=== PATIENT | female | born 1990 | race Caucasian/White ===

== ENCOUNTER 2016-08-26 17:46 | Emergency (ER) | payer BC, MEDICAID ==
[~2016-08-26 17:46] MED LIST: AZIT200S PO; TYLCOD5S PO
[2016-08-26] MEDS ORDERED: ACETAMINOPHEN 500 MG CPLT PO ONE (18:45)
--- NOTE | 2016-08-26 18:45 | PD ---
HPI Chief Complaint the light hurts my eyes, headaches Date Seen: Aug 26, 2016 Time Seen: 18:30 Travel History International Travel<30 Days: No Contact w/Intl Traveler<30Days: No Known Affected Area: No History of Present Illness HPI 25-year-old 002 at 21 weeks and 4 days of gestation, Di/Di twin , SKIP is 01/02/17, patient presents to OB ED with complaints of headaches, patient stated that she cannot tolerate lights as it hurts her eyes/photophobia , patient denies cramping, contractions, leakage of fluids, vaginal bleeding and decreased movements. She reports presence of movements 2. care is with Dr. Devlin, course significant for history of migraines. Bedside ultrasound shows twin A with heart rates in the 150s, twin B heart rate in the 140s. Para: 2 : 3 Miscarriage: 0 : 0 History Past Medical History Narrative Medical Migraines headaches Obstetric History Obstetric History Spontaneous vaginal delivery 2 Past Surgical History Narrative Surgical Status post left ankle surgery Family History Narrative Family History Unremarkable Family History: Negative Social History Alcohol Use: No Tobacco Use: No Substance Abuse: No Allergies-Medications (Allergen,Severity, Reaction): Coded Allergies: Penicillin (Verified Allergy, Severe, 05/22/15) Sulfa (Verified Allergy, Severe, 05/22/15) Home Meds Active Scripts Acetaminophen/Codein 120 Mg/12 Mg Elix10 Ml PO Q6H #120 ML Prov:Ana Cristina Mack MD 05/22/15 Azithromycin (Zithromax 200 Mg/5 Ml)200 Mg/5 Ml Susp PO DIRECTED 5 Days ___ ML (___ MG) PO ON DAY 1, THEN ___ ML (___ MG) PO ON DAYS 2 TO 5 Prov:Ana Cristina Mack MD 05/22/15 Review of Systems Except as stated in HPI: all other systems reviewed are Neg Eyes: Photophobia HENT: Headaches Physical Exam Narrative GENERAL: Well-nourished, well-developed patient. SKIN: Warm and dry. HEAD: Normocephalic and atraumatic. EYES: No scleral icterus. No injection or drainage. ENT: No nasal drainage noted. Mucous membranes pink. Airway patent. NECK: Supple, trachea midline. No JVD. CARDIOVASCULAR: Regular rate and rhythm without murmurs, gallops, or rubs. RESPIRATORY: Breath sounds equal bilaterally. No accessory muscle use. BREASTS: Bilateral exam showed no masses , no retractions, no nipple discharge. ABDOMEN/GI: Abdomen soft, non-tender, gravid, bowel sounds present, no rebound, no guarding Gravid to 22 weeks size Fundal Height: 22 cm GENITOURINARY: External Genitalia: intact and normal in appearance BUS glands: Normal Cervix: Closed, long, posterior Dilatation: Closed Effacement: 30% Station: -3 Presentation: Cephalic 2 Membranes: Intact Uterine Contractions: None FHT's: Category: one Baseline: Twin A 150s, twin B1 40s Reactive: Reassuring Variability: Moderate Decels: None EXTREMITIES: No cyanosis or edema. BACK: Nontender without obvious deformity. No CVA tenderness. NEUROLOGICAL: Awake and alert. Motor and sensory grossly within normal limits. Five out of 5 muscle strength in all muscle groups. Normal speech. Data Data Vital Signs Reviewed: Yes Orders Vital Signs (Adult) .ON ADMISSION (08/26/16 18:32) ^ Labor Status (08/26/16 18:32) Urinalysis - C+S If Indicated (08/26/16 18:32) ^ Non Stress Test (08/26/16 18:32) ^ Hydration (08/26/16 18:32) Acetaminophen (Tylenol) (08/26/16 18:45) MDM Diagnosis Diagnosis: Primary Impression: 22 weeks gestation of Additional Impressions: Twin in second trimester Qualified Code: O30.042 - Dichorionic diamniotic twin in second trimester Migraine headache Disposition: DISCHARGE HOME Condition: Stable Additional Instructions: Patient is given Tylenol 1000 mg by mouth times one dose, she is instructed to return to labor and delivery if increased symptoms, cramping, contractions, leakage of fluids, vaginal bleeding, or decreased movement. Drink plenty of fluids. Monitor kick counts. Keep office appointment as scheduled. Take medications as prescribed. Hong Alford MD Aug 26, 2016 18:45
[2016-08-26 18:51] VITALS: RESP 18
[2016-08-26 21:07] LABS: BLOOD, URINE NEG (NEG); COMMENT (UR) CULT NOT INDICATED; CULTURE IF INDICATED CULT NOT INDICATED; GLUCOSE,URINE NEG (NEG); KETONE, URINE NEG (NEG); MUCUS URINE FEW /lpf (OCC); NITRITE,URINE NEG (NEG); PH, URINE 6.5 (5.0-8.5); SQUAMOUS EPITHELIAL CELL URINE 2 /hpf (0-5); URINE COLOR YELLOW (YELLW/STRAW)
== END 2016-08-26 18:58 | disposition home or self-care (01) ==
LOC: HOBED 17:46
DX: O26.892 Other specified pregnancy related conditions, second trimester (principal); O30.042 Twin pregnancy, dichorionic/diamniotic, second trimester; G43.909 Migraine, unspecified, not intractable, without status migrainosus; Z3A.22 22 weeks gestation of pregnancy
CPT/HCPCS: 76815; 81001

== ENCOUNTER 2016-10-19 14:06 | Emergency (ER) | payer BC ==
--- NOTE | 2016-10-19 15:17 | PD ---
HPI Chief Complaint Contractions Date Seen: Oct 19, 2016 Time Seen: 15:12 Travel History International Travel<30 Days: No Contact w/Intl Traveler<30Days: No Known Affected Area: No History of Present Illness HPI 25-year-old at 29 weeks gestation with a twin surrogate . Patient complains of slight tightening in the left upper quadrant the last approximate 10-15 seconds and occurs every 15-20 minutes. No complications Para: 2 : 3 History Past Medical History Medical History: Denies Significant Hx Obstetric History Obstetric History Spontaneous vaginal delivery 2 Past Surgical History Surgical History: No Previous Surgery Family History Family History: Negative Social History Alcohol Use: No Tobacco Use: No Substance Abuse: No Allergies-Medications (Allergen,Severity, Reaction): Coded Allergies: Penicillin (Verified Allergy, Severe, 05/22/15) Sulfa (Verified Allergy, Severe, 05/22/15) Home Meds Active Scripts Acetaminophen/Codeine (Tylenol / Codeine Elix Per 5 Ml)120 Mg/12 Mg Elix10 Ml PO Q6H #120 ML Prov:Ana Cristina Mack MD 05/22/15 Azithromycin (Zithromax 200 Mg/5 Ml)200 Mg/5 Ml Susp PO DIRECTED 5 Days ___ ML (___ MG) PO ON DAY 1, THEN ___ ML (___ MG) PO ON DAYS 2 TO 5 Prov:Ana Cristina Mack MD 05/22/15 Review of Systems Except as stated in HPI: all other systems reviewed are Neg Physical Exam Narrative GENERAL: Well-nourished, well-developed patient. SKIN: Warm and dry. HEAD: Normocephalic and atraumatic. EYES: No scleral icterus. No injection or drainage. ENT: No nasal drainage noted. Mucous membranes pink. Airway patent. NECK: Supple, trachea midline. No JVD. CARDIOVASCULAR: Regular rate and rhythm without murmurs, gallops, or rubs. RESPIRATORY: Breath sounds equal bilaterally. No accessory muscle use. BREASTS: Bilateral exam showed no masses , no retractions, no nipple discharge. ABDOMEN/GI: Abdomen soft, non-tender, bowel sounds present, no rebound, no guarding Gravid to [38-] weeks size Fundal Height: [-] GENITOURINARY: External Genitalia: intact and normal in appearance BUS glands: [-] Normal Cervix: [Posterior-] Dilatation: [Closed-] Effacement: [-50] Station: [-3-] Presentation: - Membranes: Intact Uterine Contractions: None seen FHT's: Category: [-1 on both babies] Baseline: 145 and 150 Reactive: Moderate Variability: Moderate Decels: Absent EXTREMITIES: No cyanosis or edema. BACK: Nontender without obvious deformity. No CVA tenderness. NEUROLOGICAL: Awake and alert. Motor and sensory grossly within normal limits. Five out of 5 muscle strength in all muscle groups. Normal speech. Data Data Vital Signs Reviewed: Yes MDM Plan 29 week twin gestation no contractions seen cervix is closed. Patient reassured , decrease her activities with adequate oral hydration Diagnosis Diagnosis: Primary Impression: 29 weeks gestation of Additional Impressions: Twin False labor before 37 completed weeks of gestation, third trimester Disposition: 01 DISCHARGE HOME Suzie Wilson MD Oct 19, 2016 15:17
== END 2016-10-19 16:20 | disposition home or self-care (01) ==
LOC: HOBED 14:06
DX: O47.1 False labor at or after 37 completed weeks of gestation (principal); R10.12 Left upper quadrant pain; Z3A.37 37 weeks gestation of pregnancy
CPT/HCPCS: 76815

== ENCOUNTER 2016-11-16 22:33 | Emergency (ER) | payer BC ==
--- NOTE | 2016-11-16 23:36 | PD ---
HPI Chief Complaint Lower abdominal pain Date Seen: Nov 16, 2016 Time Seen: 23:33 Travel History International Travel<30 Days: No Contact w/Intl Traveler<30Days: No Known Affected Area: No History of Present Illness HPI 26-year-old who is at 33 weeks and 2 days comes in complaining of lower abdominal pain for the past 48 hours. She states it has not changed, has not worsened or improved during that time. She called her OB this evening who instructed her to come in today for a cervical exam. She denies vaginal bleeding, denies contractions, denies discharge rupture membranes. Patient has had excellent movement without any abnormalities of this . This is a surrogate twin . Para: 2 : 3 History Past Medical History Medical History: Denies Significant Hx Obstetric History Obstetric History Spontaneous vaginal delivery 2 Past Surgical History Surgical History: No Previous Surgery Family History Family History: Negative Social History Alcohol Use: No Tobacco Use: No Substance Abuse: No Allergies-Medications (Allergen,Severity, Reaction): Coded Allergies: Penicillin (Verified Allergy, Severe, 10/19/16) Sulfa (Verified Allergy, Severe, 10/19/16) Home Meds Active Scripts Acetaminophen/Codeine (Tylenol / Codeine Elix Per 5 Ml)120 Mg/12 Mg Elix10 Ml PO Q6H #120 ML Prov:Ana Cristina Mack MD 05/22/15 Azithromycin (Zithromax 200 Mg/5 Ml)200 Mg/5 Ml Susp PO DIRECTED 5 Days ___ ML (___ MG) PO ON DAY 1, THEN ___ ML (___ MG) PO ON DAYS 2 TO 5 Prov:Ana Cristina Mack MD 05/22/15 Review of Systems Except as stated in HPI: all other systems reviewed are Neg Physical Exam Narrative GENERAL: Well-nourished, well-developed patient. SKIN: Warm and dry. HEAD: Normocephalic and atraumatic. EYES: No scleral icterus. No injection or drainage. ENT: No nasal drainage noted. Mucous membranes pink. Airway patent. NECK: Supple, trachea midline. No JVD. CARDIOVASCULAR: Regular rate and rhythm without murmurs, gallops, or rubs. RESPIRATORY: Breath sounds equal bilaterally. No accessory muscle use. BREASTS: Bilateral exam showed no masses , no retractions, no nipple discharge. ABDOMEN/GI: Abdomen soft, non-tender, bowel sounds present, no rebound, no guarding Gravid to [40-] weeks size Fundal Height: [-] GENITOURINARY: External Genitalia: intact and normal in appearance BUS glands: [Normal-] Cervix: [-Posterior] Dilatation: [-Closed] Effacement: [Long-] Station: [-3-] Presentation: [-Vertex with twin A] Membranes: [intact or ruptured] Uterine Contractions: [-Absent] FHT's: Category: [-1] Baseline: 140 and 140 both twins have moderate variability, good reactivity, accelerations are present, no heart rate decelerations are noted Reactive: [-] Variability: [-] Decels: [-] EXTREMITIES: No cyanosis or edema. BACK: Nontender without obvious deformity. No CVA tenderness. NEUROLOGICAL: Awake and alert. Motor and sensory grossly within normal limits. Five out of 5 muscle strength in all muscle groups. Normal speech. MDM Medical Record Reviewed: Yes Plan 26 yo who is at 33 weeks and 2 days with twin gestation. Some discomforts of are noted with round ligament pain and some mild low back pain Cervix is closed and patient has no contractions Patient has appointment next Saturday for follow-up OB Diagnosis Diagnosis: Primary Impression: 33 weeks gestation of Additional Impressions: Twin Abdominal pain affecting Disposition: 01 DISCHARGE HOME Suzie Wilson MD Nov 16, 2016 23:35
== END 2016-11-16 23:50 | disposition home or self-care (01) ==
LOC: HOBED 22:33
DX: O26.893 Other specified pregnancy related conditions, third trimester (principal); R10.30 Lower abdominal pain, unspecified; O30.003 Twin pregnancy, unspecified number of placenta and unspecified number of amniotic sacs, third trimester; Z3A.33 33 weeks gestation of pregnancy
CPT/HCPCS: 59025

== ENCOUNTER 2016-12-06 09:16 | Emergency (ER) | payer BC ==
--- NOTE | 2016-12-06 10:13 | PD ---
HPI Chief Complaint contractions Date Seen: December 06, 2016 Travel History International Travel<30 Days: No Contact w/Intl Traveler<30Days: No Known Affected Area: No History of Present Illness HPI Ms. Cooln is a 26-year-old [address] Devlin at 36 1/7 weeks (2016) with current twinge gestation who presents with complaint of contractions. Patient states that her contractions began approximately 7 AM, and her increased in severity; patient reports back and abdominal pain occurring approximately every 67 minutes at a time. Patient denies vaginal bleeding or loss of vaginal fluid. Patient reports increased she'll discharge which she describes as whitish in color. Patient reports normal movement. Patient does not report other current problems such as shortness of breath, chest pain, or dysuria. Patient reports benign course with exception of anemia. Per records reviewed by nursing staff, patient's last hemoglobin was 8.4. Patient on current ferrous sulfate supplementation. GBS - Para: 2 : 3 History Past Medical History Narrative Medical Anemia (last known hemoglobin of 8.4)on ferrous sulfate supplementation Abnormal Pap smears- unspecified On 81mg aspirin Obstetric History Obstetric History 002 Two prior full-term vaginal deliveries Past Surgical History Narrative Surgical Unspecified ankle surgery approximately 9 years ago Family History Family History: Negative Social History Narrative Social History Patient reports that she is caring twin gestation as a surrogate Alcohol Use: No Tobacco Use: No Substance Abuse: No Allergies-Medications (Allergen,Severity, Reaction): Coded Allergies: Penicillin (Verified Allergy, Severe, 10/19/16) Sulfa (Verified Allergy, Severe, 10/19/16) Home Meds Active Scripts Acetaminophen/Codeine (Tylenol / Codeine Elix Per 5 Ml)120 Mg/12 Mg Elix10 Ml PO Q6H #120 ML Prov:Ana Cristina Mack MD 05/22/15 Azithromycin (Zithromax 200 Mg/5 Ml)200 Mg/5 Ml Susp PO DIRECTED 5 Days ___ ML (___ MG) PO ON DAY 1, THEN ___ ML (___ MG) PO ON DAYS 2 TO 5 Prov:Ana Cristina Mack MD 05/22/15 Review of Systems General / Constitutional: No: Fever, Chills HENT: No: Headaches Cardiovascular: No: Chest Pain or Discomfort Respiratory: No: Short of Breath Gastrointestinal: Abdominal Pain (q 67 minutes), No: Nausea, Vomiting Genitourinary: No: Dysuria Physical Exam BP 132/96 HR 87 T 98 R 18 Narrative GENERAL: Well-nourished, well-developed patient. SKIN: Warm and dry. HEAD: Normocephalic and atraumatic. EYES: No scleral icterus. No injection or drainage. ENT: No nasal drainage noted. Mucous membranes pink. Airway patent. NECK: Supple, trachea midline. No JVD. CARDIOVASCULAR: Regular rate and rhythm without murmurs. Normal perfusion RESPIRATORY: CTAB, normal rate ABDOMEN/GI: Abdomen soft, non-tender, bowel sounds present, no rebound, no guarding Gravid EXTREMITIES: No cyanosis or edema. NEUROLOGICAL: Awake and alert. Motor and sensory function grossly within normal limits. GENITOURINARY: Exam performed by nursing staff External Genitalia: intact and normal in appearance Cervix: Dilatation: 2 cm Effacement: 40% effacement Station: -3 Presentation: Presenting twin is breech Membranes: Intact Uterine Contractions: Every 35 minutes FHT's: Red Category: 1 Baseline: 130 Reactive: Y Variability: Moderate Decels: None FHT's: Blue Category: 1 Baseline: 130 Reactive: Y Variability: Mod Decels: None MDM Medical Record Reviewed: Yes Narrative Course / MDM Ms. Colon is a 26-year-old [address] Devlin at 36 1/7 weeks (2016) with current twinge gestation who presents with complaint of contractions. -Contractions q3-5 minutes -Cat 1 rhythm for both twins -Presenting twin breech -GBS negative Plan: -IV LR hydration -Fentanyl PRN pain -Due to high chance of need for CS, will obtain CBC, UA, Type and screen -Will plan for Dr. Devlin to be notified by Ramesh Diaz MD R2 December 06, 2016 10:13
[2016-12-06 10:40] LABS: AUTOMATED NEUTROPHIL # 8.4 TH/MM3 (1.8-7.7); BASOPHIL # 0.1 TH/MM3 (0-0.2); BASOPHIL % 0.5 % (0.0-2.0); EOSINOPHIL # 0.2 TH/MM3 (0-0.4); EOSINOPHIL % 1.5 % (0.0-4.0); HEMATOCRIT 25.2 % (35.0-46.0); LYMPH % 18.8 % (9.0-44.0); LYMPHOCYTE # 2.1 TH/MM3 (1.0-4.8); MEAN CELL VOLUME 61.2 FL (80.0-100.0); MEAN CORPUSCULAR HEMOGLOBIN 18.5 PG (27.0-34.0); MEAN CORPUSCULAR HGB CONC 30.3 % (32.0-36.0); MONO % 5.4 % (0.0-8.0); NEUT % 73.8 % (16.0-70.0); PLATELET COUNT 207 TH/MM3 (150-450); RED BLOOD COUNT 4.12 MIL/MM3 (4.00-5.30); RED CELL DISTRIBUTION WIDTH 18.3 % (11.6-17.2); WHITE BLOOD COUNT 11.3 TH/MM3 (4.0-11.0)
[2016-12-06] MEDS ORDERED: LACTATED RINGER'S 1000 ML INJ 1,000 ML IV SCH (10:43)
[2016-12-06 10:44] LABS: HEMO FLAGS AUTO DIFF
[2016-12-06 10:47] LABS: BACTERIA, URINE RARE /hpf; BLOOD, URINE NEG (NEG); COMMENT (UR) CULT NOT INDICATED; CULTURE IF INDICATED CULT NOT INDICATED; GLUCOSE,URINE NEG (NEG); KETONE, URINE NEG (NEG); MUCUS URINE FEW /lpf (OCC); NITRITE,URINE NEG (NEG); PH, URINE 6.5 (5.0-8.5); SQUAMOUS EPITHELIAL CELL URINE 2 /hpf (0-5); TRANSITIONAL EPI CELLS, URINE <1 /hpf; URINE COLOR YELLOW (YELLW/STRAW)
[2016-12-06 11:27] LABS: BANDS 11 % (0-6); EOSINOPHILS 2 % (0-4); METAMYELOCYTES 1 % (0-1); NEUTROPHIL # MANUAL DIFF 9.8 TH/MM3 (1.8-7.7); PLATELET ESTIMATE SMEAR NORMAL (NORMAL); PLATELET MORPHOLOGY NORMAL (NORMAL); POLYS (SEG NEUTROPHILS) 75 % (16-70); SCAN/DIFF FINAL DIFF MANUAL; WBC DIFF SAMPLE 100
--- NOTE | 2016-12-06 12:35 | HHI.HP ---
HPI Chief Complaint twins with contractions Date Seen: December 06, 2016 Travel History International Travel<30 Days: No Contact w/Intl Traveler<30Days: No Known Affected Area: No History of Present Illness HPI Patient is 26-year-old with twins presents complaining of contractions at 36 weeks, denies bleeding or ruptured membranes. Babies are active. She sees Dr. Dior for care. Para: 2 : 3 History Obstetric History Obstetric History 2 vaginal deliveries Social History Alcohol Use: No Tobacco Use: No Substance Abuse: No Allergies-Medications (Allergen,Severity, Reaction): Coded Allergies: Penicillin (Verified Allergy, Severe, 10/19/16) Sulfa (Verified Allergy, Severe, 10/19/16) Home Meds Active Scripts Acetaminophen/Codeine (Tylenol / Codeine Elix Per 5 Ml)120 Mg/12 Mg Elix10 Ml PO Q6H #120 ML Prov:Ana Cristina Mack MD 05/22/15 Azithromycin (Zithromax 200 Mg/5 Ml)200 Mg/5 Ml Susp PO DIRECTED 5 Days ___ ML (___ MG) PO ON DAY 1, THEN ___ ML (___ MG) PO ON DAYS 2 TO 5 Prov:Ana Cristina Mack MD 05/22/15 Review of Systems General / Constitutional: No: Fever, Weight Gain, Chills, Other Eyes: No: Diploplia, Blurred Vision, Visual changes, Pain, Photophobia HENT: No: Headaches, Vertigo, Lightheadedness Cardiovascular: No: Irregular Rhythm, Chest Pain or Discomfort, Palpitations, Tachycardia, Syncope, Varicosities, Edema, Cyanosis Respiratory: No: Cough, Short of Breath, Other Gastrointestinal: No: Nausea, Vomiting, Diarrhea Genitourinary: No: Decreased Urinary Output, Oliguria Musculoskeletal: No: Limited ROM, Weakness, Cramping, Edema, Pain Skin: No Rash, No Itching, No Dryness, No Lumps, No Change in Pigmentation, No Change in Nails, No Alopecia, No Lesions Neurologic: No: Weakness, Dizziness, Syncope, Focal Abnormalities, Coordination Problem, Headache, Slurred Speech, Seizures Psychiatric: No: Depression, Suicidal Ideations, Homicidal Ideation Endocrine: No: Heat Intolerance, Cold Intolerance, Polydipsia, Polyuria, Other Physical Exam Narrative GENERAL: Well-nourished, well-developed patient. SKIN: Warm and dry. HEAD: Normocephalic and atraumatic. EYES: No scleral icterus. No injection or drainage. ENT: No nasal drainage noted. Mucous membranes pink. Airway patent. NECK: Supple, trachea midline. No JVD. CARDIOVASCULAR: Regular rate and rhythm without murmurs, gallops, or rubs. RESPIRATORY: Breath sounds equal bilaterally. No accessory muscle use. BREASTS: Bilateral exam showed no masses , no retractions, no nipple discharge. ABDOMEN/GI: Abdomen soft, non-tender, bowel sounds present, no rebound, no guarding Gravid to [40-] weeks size Fundal Height: [40-] GENITOURINARY: External Genitalia: intact and normal in appearance BUS glands: [-] Cervix: [-] Dilatation: [2-] Effacement: [40-] Station: [-3] Presentation: [breech / vtx-] Membranes: [intact ] Uterine Contractions: [q 3 min-] FHT's: Category: [1-] Baseline: [134/144-] Reactive: [yes-] Variability: [-mod] Decels: [-none] EXTREMITIES: No cyanosis or edema. BACK: Nontender without obvious deformity. No CVA tenderness. NEUROLOGICAL: Awake and alert. Motor and sensory grossly within normal limits. Five out of 5 muscle strength in all muscle groups. Normal speech. Data Data Orders Vital Signs (Adult) .ON ADMISSION (12/06/16 10:13) Activity Oob Ad Shanice (12/06/16 10:13) Heart (12/06/16 10:13) Lactated Ringer's 1000 Ml Inj (Lr 1000 M (12/06/16 10:43) Type And Screen (12/06/16 10:13) Complete Blood Count With Diff (12/06/16 10:13) Urinalysis - C+S If Indicated (12/06/16 10:13) Labs Laboratory Tests Test 12/06/16 12/06/16 09:24 10:10 Urine Color YELLOW Urine Turbidity CLEAR Urine pH 6.5 Urine Specific [place] 1.014 Urine Protein NEG Urine Glucose (UA) NEG Urine Ketones NEG Urine Occult Blood NEG Urine Nitrite NEG Urine Bilirubin NEG Urine Urobilinogen LESS THAN 2.0 Urine Leukocyte Esterase LARGE Urine RBC 2 Urine WBC 4 Urine Squamous Epithelial 2 Cells Urine Transitional Epithelial <1 Cells Urine Bacteria RARE Urine Mucus FEW Microscopic Urinalysis Comment CULT NOT INDICATED White Blood Count 11.3 Red Blood Count 4.12 Hemoglobin 7.7 Hematocrit 25.2 Mean Corpuscular Volume 61.2 Mean Corpuscular Hemoglobin 18.5 Mean Corpuscular Hemoglobin 30.3 Concent Red Cell Distribution Width 18.3 Platelet Count 207 Mean Platelet Volume 8.8 Neutrophils (%) (Auto) 73.8 Lymphocytes (%) (Auto) 18.8 Monocytes (%) (Auto) 5.4 Eosinophils (%) (Auto) 1.5 Basophils (%) (Auto) 0.5 Neutrophils # (Auto) 8.4 Lymphocytes # (Auto) 2.1 Monocytes # (Auto) 0.6 Eosinophils # (Auto) 0.2 Basophils # (Auto) 0.1 CBC Comment AUTO DIFF Differential Total Cells 100 Counted Neutrophils % (Manual) 75 Band Neutrophils % 11 Lymphocytes % 8 Monocytes % 3 Eosinophils % 2 Neutrophils # (Manual) 9.8 Metamyelocytes 1 Differential Comment FINAL DIFF MANUAL Platelet Estimate NORMAL Platelet Morphology Comment NORMAL Blood Type A POSITIVE Antibody Screen NEGATIVE Assessment/Plan Assessment and Plan This patient is 26-year-old white female 36 weeks with twins briseyda. Baby is notably breech presenting with the second twin vertex. She has regular contractions every 3 minutes. heart tones within normal limits & reactive. No bleeding or ruptured membranes. Patient's is Dr. Dior for care. This is a surrogacy . With the patient briseyda irregularly hydrated adequately still briesyda Dr. Dior is on his way here to reevaluate and possibly deliver the baby's by by . Js Vasquez II, MD December 06, 2016 12:35
--- NOTE | 2016-12-06 13:24 | HHI.PR ---
Subjective Remarks doing well CTX spaced and she feels better Objective Result Diagram: 12/06/16 1010 Assessment and Plan Problem List: (1) Twin Status: Acute Discharge Planning dc home labor precautions Problem Qualifiers (1) Twin : Qualified Code: O30.043 - Dichorionic diamniotic twin in third trimester Arthur Devlin MD December 06, 2016 13:24
== END 2016-12-06 13:34 | disposition home or self-care (01) ==
LOC: HOBED 09:16 → UNDOADMIN 12:47 → H2EB 12:47 → HOBED 13:34
DX: O30.043 Twin pregnancy, dichorionic/diamniotic, third trimester (principal)
CPT/HCPCS: 59025; 81001; 85007; 85027; 86850; 86900; 86901; 96360; 99284; J7120

== ENCOUNTER 2016-12-11 01:48 | Inpatient (IN) | payer BC ==
[2016-12-11] VITALS (7 sets, daily range): BP systolic 116–142; BP diastolic 57–90; PULSE 64–98; RESP 16–18; TEMP 97.5–98.8; O2SAT 99–100
[2016-12-11] MEDS: LACTATED RINGER'S 1000 ML INJ 1,000 ML IV SCH ×3 (02:45→18:00)
--- NOTE | 2016-12-11 02:58 | PD ---
HPI Chief Complaint contractions since 1130p Date Seen: December 11, 2016 Travel History International Travel<30 Days: No Contact w/Intl Traveler<30Days: No Known Affected Area: No History of Present Illness HPI This is a 26y/o at 36w6d with TIUP who presented to the [facility] with reports of contractions since 1130p. She denies vaginal bleeding or leakage of fluid with reports of active movements. care with Dr. Amato, complicated by: 1. surrogate with TIUP Para: 2 : 3 History Past Medical History Medical History: Denies Significant Hx Obstetric History Obstetric History 09/14/2010 41w Female 7lb2oz 03/18/2013 38w Male 7lb6oz Past Surgical History Narrative Surgical 2008 left ankle fixation Family History Family History: Negative Social History Alcohol Use: No Tobacco Use: No Substance Abuse: No Allergies-Medications (Allergen,Severity, Reaction): Coded Allergies: Penicillin (Verified Allergy, Severe, 10/19/16) Sulfa (Verified Allergy, Severe, 10/19/16) Home Meds Active Scripts Acetaminophen/Codeine (Tylenol / Codeine Elix Per 5 Ml)120 Mg/12 Mg Elix10 Ml PO Q6H #120 ML Prov:Ana Cristina Mack MD 05/22/15 Azithromycin (Zithromax 200 Mg/5 Ml)200 Mg/5 Ml Susp PO DIRECTED 5 Days ___ ML (___ MG) PO ON DAY 1, THEN ___ ML (___ MG) PO ON DAYS 2 TO 5 Prov:Ana Cristina Mack MD 05/22/15 Review of Systems Except as stated in HPI: all other systems reviewed are Neg Physical Exam Narrative GENERAL: Well-nourished, well-developed patient. SKIN: Warm and dry. HEAD: Normocephalic and atraumatic. EYES: No scleral icterus. No injection or drainage. ENT: No nasal drainage noted. Mucous membranes pink. Airway patent. NECK: Supple, trachea midline. No JVD. CARDIOVASCULAR: Regular rate and rhythm without murmurs, gallops, or rubs. RESPIRATORY: Breath sounds equal bilaterally. No accessory muscle use. BREASTS: Bilateral exam showed no masses , no retractions, no nipple discharge. ABDOMEN/GI: Abdomen soft, non-tender, bowel sounds present, no rebound, no guarding Gravid to 38 weeks size Fundal Height: 38 GENITOURINARY: External Genitalia: intact and normal in appearance VE: 2-3/50/-2 Uterine Contractions: q1-2 minutes apart FHT's: Category: 1 times 2 EXTREMITIES: No cyanosis 1+ edema. BACK: Nontender without obvious deformity. No CVA tenderness. NEUROLOGICAL: Awake and alert. Motor and sensory grossly within normal limits. Five out of 5 muscle strength in all muscle groups. Normal speech. Data Data Vital Signs Reviewed: Yes [facility] Medical Record Reviewed: Yes Interpretation(s) 26y/o TIUP at 36w6d with contractions. -no cervical change since her office exam on Saturday -reassuring tracing times 2 Plan -IV fentanyl -will recheck in 2 hours, if no cervical change can d/c home Addendum: 0525 12/11/16 -Cervical recheck: 450/-2 From 2-50/-2 -pt in early labor -d/w Dr. Hewitt, plan for primary c/s -pt counseled at length about risks of the procedure, including but not limited to: infection, bleeding, bowel/bladder injury, injury to fetus, wound separation /infection Diagnosis Diagnosis: Primary Impression: Twin in third trimester Qualified Code: O30.003 - Twin gestation in third trimester, unspecified multiple gestation type Additional Impression: Surrogate in third trimester Carina Nickerson MD December 11, 2016 02:58
[2016-12-11 04:10] LABS: BACTERIA, URINE RARE /hpf; BLOOD, URINE NEG (NEG); COMMENT (UR) CULTURE INDICATED; CULTURE IF INDICATED CULTURE INDICATED; GLUCOSE,URINE NEG (NEG); KETONE, URINE 40 mg/dL (NEG); MUCUS URINE FEW /lpf (OCC); NITRITE,URINE NEG (NEG); PH, URINE 6.5 (5.0-8.5); SQUAMOUS EPITHELIAL CELL URINE <1 /hpf (0-5); URINE COLOR LIGHT-YELLOW (YELLW/STRAW)
[2016-12-11] MEDS ORDERED: LACTATED RINGER'S 1000 ML INJ 1,000 ML IV ONE (05:34)
--- NOTE | 2016-12-11 05:35 | HHI.HP ---
HPI Chief Complaint contractions since 11p Date Seen: December 11, 2016 Travel History International Travel<30 Days: No Contact w/Intl Traveler<30Days: No Known Affected Area: No History of Present Illness HPI This is a 26y/o at 36w6d with TIUP who presented to the [facility] with reports of contractions since 1130p. She denies vaginal bleeding or leakage of fluid with reports of active movements. care with Dr. Amato, complicated by: 1. surrogate with TIUP Para: 2 : 3 History Past Medical History Medical History: Denies Significant Hx Obstetric History Obstetric History 09/14/2010 41w Female 7lb2oz 03/18/2013 38w Male 7lb6oz Past Surgical History Narrative Surgical 2008 left ankle fixation Family History Family History: Negative Social History Alcohol Use: No Tobacco Use: No Substance Abuse: No Allergies-Medications (Allergen,Severity, Reaction): Coded Allergies: Penicillin (Verified Allergy, Severe, 10/19/16) Sulfa (Verified Allergy, Severe, 10/19/16) Home Meds Active Scripts Acetaminophen/Codeine (Tylenol / Codeine Elix Per 5 Ml)120 Mg/12 Mg Elix10 Ml PO Q6H #120 ML Prov:Ana Cristina Mack MD 05/22/15 Azithromycin (Zithromax 200 Mg/5 Ml)200 Mg/5 Ml Susp PO DIRECTED 5 Days ___ ML (___ MG) PO ON DAY 1, THEN ___ ML (___ MG) PO ON DAYS 2 TO 5 Prov:Ana Cristina Mack MD 05/22/15 Review of Systems Except as stated in HPI: all other systems reviewed are Neg Physical Exam Narrative GENERAL: Well-nourished, well-developed patient. SKIN: Warm and dry. HEAD: Normocephalic and atraumatic. EYES: No scleral icterus. No injection or drainage. ENT: No nasal drainage noted. Mucous membranes pink. Airway patent. NECK: Supple, trachea midline. No JVD. CARDIOVASCULAR: Regular rate and rhythm without murmurs, gallops, or rubs. RESPIRATORY: Breath sounds equal bilaterally. No accessory muscle use. BREASTS: Bilateral exam showed no masses , no retractions, no nipple discharge. ABDOMEN/GI: Abdomen soft, non-tender, bowel sounds present, no rebound, no guarding Gravid to 38 weeks size Fundal Height: 38 GENITOURINARY: External Genitalia: intact and normal in appearance VE: 2-/-2; repeat exam /-2 Uterine Contractions: q1-2 minutes apart FHT's: Category: 1 times 2 EXTREMITIES: No cyanosis 1+ edema. BACK: Nontender without obvious deformity. No CVA tenderness. NEUROLOGICAL: Awake and alert. Motor and sensory grossly within normal limits. Five out of 5 muscle strength in all muscle groups. Normal speech. Data Data Vital Signs Reviewed: Yes Orders Vital Signs (Adult) .ON ADMISSION (12/11/16 02:45) ^ Labor Status (12/11/16 02:45) Urinalysis - C+S If Indicated (12/11/16 02:45) Lactated Ringer's 1000 Ml Inj (Lr 1000 M (12/11/16 02:45) Fentanyl Inj (Fentanyl Inj) (12/11/16 03:00) Urine Culture (12/11/16 02:50) Ob (2e) Additional Admit Info (12/11/16 05:18) Labs Laboratory Tests Test 12/11/16 02:50 Urine Color LIGHT-YELLOW Urine Turbidity CLEAR Urine pH 6.5 Urine Specific [place] 1.009 Urine Protein NEG Urine Glucose (UA) NEG Urine Ketones 40 Urine Occult Blood NEG Urine Nitrite NEG Urine Bilirubin NEG Urine Urobilinogen LESS THAN 2.0 Urine Leukocyte Esterase MOD Urine RBC LESS THAN 1 Urine WBC 21 Urine Squamous Epithelial <1 Cells Urine Bacteria RARE Urine Mucus FEW Microscopic Urinalysis Comment CULTURE INDICATED Date/Time Procedure Status Source Growth 12/11/16 02:50 Urine Culture Received Urine Clean Catch Pending Assessment/Plan Problem List: (1) Surrogate in third trimester (2) Twin in third trimester Assessment and Plan 26y/o TIUP at 36w6d in labor with malpresenting TIUP. -Cervical recheck: /-2 From 2-/-2 -pt in early labor -d/w Dr. Hewitt, plan for primary c/s -pt counseled at length about risks of the procedure, including but not limited to: infection, bleeding, bowel/bladder injury, injury to fetus, wound separation /infection Carina Nickerson MD December 11, 2016 05:34
[2016-12-11 05:37] LABS: MEAN CORPUSCULAR HGB CONC 29.7 % (32.0-36.0)
[2016-12-11 05:46] LABS: BASOPHIL # 0.1 TH/MM3 (0-0.2); BASOPHIL % 0.5 % (0.0-2.0); EOSINOPHIL # 0.1 TH/MM3 (0-0.4); EOSINOPHIL % 0.8 % (0.0-4.0); HEMATOCRIT 25.5 % (35.0-46.0); LYMPH % 22.4 % (9.0-44.0); LYMPHOCYTE # 2.8 TH/MM3 (1.0-4.8); MEAN CORPUSCULAR HEMOGLOBIN 18.4 PG (27.0-34.0); MONO % 5.1 % (0.0-8.0); NEUT % 71.2 % (16.0-70.0); PLATELET COUNT 206 TH/MM3 (150-450); RED BLOOD COUNT 4.12 MIL/MM3 (4.00-5.30); RED CELL DISTRIBUTION WIDTH 18.9 % (11.6-17.2); WHITE BLOOD COUNT 12.7 TH/MM3 (4.0-11.0)
[2016-12-11 05:52] LABS: HEMO FLAGS AUTO DIFF
[2016-12-11] MEDS ORDERED: OXYTOCIN 10 UNIT/ML AMP ONE ×2 (05:52→05:53)
[2016-12-11] MEDS ORDERED: CLINDAMYCIN PHOS 600 MG/4 ML VIAL ONE (05:52)
[2016-12-11] MEDS ORDERED: ACETAMINOPHEN 1000 MG/100 ML VIAL IV ONE (05:53)
[2016-12-11] MEDS ORDERED: SIMETHICONE 80 MG CHEWABLE TAB PO PRN (06:15)
[2016-12-11] MEDS ORDERED: KETOROLAC TROMETHAMINE 60 MG/2 ML (IM) VIAL IM PRN (06:15)
[2016-12-11] MEDS ORDERED: SODIUM CHLORIDE 0.9% FLUSH 10 ML FLUSH IV FLUSH PRN (06:15)
[2016-12-11] MEDS ORDERED: OXYTOCIN 30 UNITS-500ML PREMIX 500 ML IV ONE ×3 (06:15→19:15)
[2016-12-11] MEDS ORDERED: ONDANSETRON HCL 4 MG/2 ML VIAL IV PUSH PRN (06:15)
[2016-12-11 06:37] LABS: BANDS 5 % (0-6); BASOPHILS 1 % (0-2); CORRECTED NUCLEATED RBC 1 /100 WBC (0-0); POLYS (SEG NEUTROPHILS) 74 % (16-70); WBC DIFF SAMPLE 100
[2016-12-11 06:38] LABS: PLATELET ESTIMATE SMEAR NORMAL (NORMAL); PLATELET MORPHOLOGY NORMAL (NORMAL); SCAN/DIFF FINAL DIFF MANUAL
[2016-12-11] MEDS ORDERED: CLINDAMYCIN INJ 600 MG in SODIUM CHLORIDE 0.9% INJ 100 ML IV SCH (06:45)
[2016-12-11] MEDS ORDERED: MORPHINE SULFATE PF 5 MG/10 ML VIAL ONE (07:12)
[2016-12-11] MEDS ORDERED: ONDANSETRON HCL 4 MG/2 ML VIAL ONE (07:12)
[2016-12-11] MEDS ORDERED: MIDAZOLAM HCL 2 MG/2 ML VIAL ONE (07:12)
[2016-12-11] MEDS ORDERED: CITRIC ACID-SODIUM CITRATE LIQ 30 ML UDC PO SCH (07:15)
[2016-12-11] MEDS ORDERED: EPIDURAL-DO NOT ADMINISTER ANTICOAGULANTS PRN (09:15)
[2016-12-11] MEDS ORDERED: EPIDURAL-NALOXONE HCL 0.4 MG/ML AMP IV PRN (09:15)
[2016-12-11] MEDS ORDERED: EPIDURAL-DIPHENHYDRAMINE HCL 50 MG CAP PO PRN (09:15)
[2016-12-11] MEDS ORDERED: EPIDURAL-NO SYSTEMIC NARCOTICS PRN (09:15)
[2016-12-11] MEDS ORDERED: EPIDURAL-DIPHENHYDRAMINE HCL 50 MG/ML VIAL IV PUSH PRN (09:15)
[2016-12-11] MEDS ORDERED: LACTATED RINGER'S 1000 ML INJ 1,000 ML IV SCH (11:11)
[2016-12-11] MEDS ORDERED: OXYTOCIN 30 UNITS-500ML PREMIX 500 ML IV PRN (16:15)
[2016-12-11] MEDS: IBUPROFEN 600 MG TAB PO PRN ×2 (16:27→21:48)
--- NOTE | 2016-12-11 17:53 | HHI.PR ---
Subjective Remarks Patient passed 400 cc of blood clot I was called and Dr Ingram was on unit and De clotted and uterus became firm Objective Vital Signs Date Time Temp Pulse Resp B/P Pulse Ox O2 Delivery O2 Flow Rate FiO2 12/11/16 16:28 98.1 80 16 123/81 12/11/16 08:16 83 18 138/83 100 12/11/16 08:05 76 18 142/72 100 12/11/16 08:05 97.5 12/11/16 07:50 18 100 12/11/16 07:50 64 132/90 12/11/16 07:32 81 18 116/57 99 12/11/16 07:13 97.6 12/11/16 07:13 70 18 120/64 99 Result Diagram: 12/11/16 0250 Assessment and Plan Problem List: (1) Twin Status: Acute (2) delivery delivered Status: Acute Arthur Devlin MD December 11, 2016 17:52
[2016-12-11 17:59] LABS: MEAN CORPUSCULAR HGB CONC 29.6 % (32.0-36.0)
[2016-12-11 18:11] LABS: AUTOMATED NEUTROPHIL # 9.7 TH/MM3 (1.8-7.7); BASOPHIL % 0.4 % (0.0-2.0); EOSINOPHIL % 0.2 % (0.0-4.0); LYMPH % 14.4 % (9.0-44.0); LYMPHOCYTE # 1.7 TH/MM3 (1.0-4.8); MEAN CELL VOLUME 61.7 FL (80.0-100.0); MEAN CORPUSCULAR HEMOGLOBIN 18.3 PG (27.0-34.0); MONO % 4.6 % (0.0-8.0); NEUT % 80.4 % (16.0-70.0); PLATELET COUNT 164 TH/MM3 (150-450); RED BLOOD COUNT 3.56 MIL/MM3 (4.00-5.30); RED CELL DISTRIBUTION WIDTH 18.4 % (11.6-17.2); WHITE BLOOD COUNT 12.1 TH/MM3 (4.0-11.0)
[2016-12-11] MEDS: oxyCODONE/ACETAMINOPHEN 5 MG/325 MG TAB PO PRN ×2 (18:23→21:47)
[2016-12-11 18:26] LABS: HEMO FLAGS AUTO DIFF
[2016-12-11] MEDS ORDERED: WITCH HAZEL 50%/GLYCERIN 12.5% 40 PAD JAR TOPICAL PRN (18:30)
[2016-12-11] MEDS ORDERED: BENZOCAINE 20% TOPICAL SPRAY 60 ML CAN TOPICAL PRN (18:30)
[2016-12-11] MEDS ORDERED: MISOPROSTOL 200 MCG TAB RECTAL ONE (18:30)
[2016-12-11 19:10] LABS: BANDS 2 % (0-6); CORRECTED NUCLEATED RBC 1 /100 WBC (0-0); EOSINOPHILS 1 % (0-4); NEUTROPHIL # MANUAL DIFF 8.7 TH/MM3 (1.8-7.7); PLATELET ESTIMATE SMEAR LOW (NORMAL); PLATELET MORPHOLOGY ENLARGED (NORMAL); POLYS (SEG NEUTROPHILS) 70 % (16-70); SCAN/DIFF FINAL DIFF MANUAL; WBC DIFF SAMPLE 100
[2016-12-11] MEDS: DOCUSATE SODIUM 50 MG/SENNA 8.6 MG TAB PO PRN (21:48)
[2016-12-12 00:07] VITALS: BP 117/75; PULSE 85; RESP 16; TEMP 98.5; O2SAT 98
[2016-12-12 05:17] VITALS: BP 125/80; PULSE 89; RESP 16; TEMP 98.4; O2SAT 96
[2016-12-12] MEDS: IBUPROFEN 600 MG TAB PO PRN ×3 (05:22→19:33)
[2016-12-12] MEDS: oxyCODONE/ACETAMINOPHEN 5 MG/325 MG TAB PO PRN ×4 (05:22→19:33)
[2016-12-12 05:57] LABS: AUTOMATED NEUTROPHIL # 7.6 TH/MM3 (1.8-7.7); BASOPHIL % 0.5 % (0.0-2.0); EOSINOPHIL # 0.1 TH/MM3 (0-0.4); LYMPH % 17.3 % (9.0-44.0); LYMPHOCYTE # 1.7 TH/MM3 (1.0-4.8); MEAN CELL VOLUME 61.5 FL (80.0-100.0); MEAN CORPUSCULAR HEMOGLOBIN 18.7 PG (27.0-34.0); MEAN CORPUSCULAR HGB CONC 30.3 % (32.0-36.0); MONO % 5.4 % (0.0-8.0); NEUT % 75.8 % (16.0-70.0); PLATELET COUNT 140 TH/MM3 (150-450); RED CELL DISTRIBUTION WIDTH 18.5 % (11.6-17.2)
[2016-12-12 06:09] LABS: HEMO FLAGS AUTO DIFF
[2016-12-12 06:10] LABS: HEMATOCRIT 19.7 % (35.0-46.0)
[2016-12-12 07:08] LABS: BANDS 5 % (0-6); MYELOCYTES 1 % (0-0); NEUTROPHIL # MANUAL DIFF 8.2 TH/MM3 (1.8-7.7); OVALOCYTES 1+ (NORMAL); POLYS (SEG NEUTROPHILS) 76 % (16-70); WBC DIFF SAMPLE 100
[2016-12-12 07:09] LABS: PLATELET ESTIMATE SMEAR LOW (NORMAL); PLATELET MORPHOLOGY NORMAL (NORMAL); POLYCHROMASIA 2.4 % (0.0-1.9); SCAN/DIFF FINAL DIFF MANUAL
[2016-12-12 08:05] VITALS: BP 120/91; PULSE 88; RESP 18; TEMP 98
--- NOTE | 2016-12-12 09:37 | HHI.OB ---
Subjective Post Day: 2 Remarks doing well asymptomatic anemia, normal bleeding Objective Vitals/I&O Vital Signs Date Time Temp Pulse Resp B/P Pulse Ox O2 Delivery O2 Flow Rate FiO2 12/12/16 08:05 98.0 88 18 120/91 12/12/16 05:17 98.4 89 16 125/80 96 12/12/16 00:07 85 16 98 12/12/16 00:07 85 16 98 12/12/16 00:07 117/75 12/12/16 00:07 98.5 12/12/16 00:07 98.5 12/12/16 00:07 117/75 12/11/16 19:18 98.8 98 18 99 12/11/16 19:18 120/76 12/11/16 16:28 98.1 80 16 123/81 Objective Remarks GENERAL: Well-nourished, well-developed patient. ABDOMEN/GI: Abdomen soft, non-tender. Fundus: Firm, non-tender at umbilicus. GENITOURINARY: Light to moderate bleeding. EXTREMITIES: No cyanosis or edema, non-tender, without signs of DVT. Medications and IVs Current Medications Medications (Trade) Dose Ordered Sig/Zora Route Start Time Stop Time Status Last Admin Lactated Ringer's 1,000 ml @ 125 mls/hr Q8H IV 12/11/16 02:45 12/11/16 02:45 (Lr 1000 ml Inj) 1,000 ml @ 150 mls/hr Q6H40M IV 12/11/16 06:04 12/11/16 07:40 (NS Flush) 2 ml BID IV FLUSH 12/11/16 09:00 (NS Flush) 2 ml UNSCH PRN IV FLUSH 12/11/16 06:15 (Mylicon Chew) 80 mg QID PRN PO 12/11/16 06:15 (Motrin) 600 mg Q6H PRN PO 12/11/16 06:15 12/12/16 05:22 (Percocet 5-325 Mg) 1 tab Q4H PRN PO 12/11/16 06:15 12/12/16 05:22 Oxycodone/ Acetaminophen 2 tab 2 tab Q4H PRN PO 12/11/16 06:15 (Ancef Inj/NS Inj) 100 ml @ 200 mls/hr Q8H IV 12/11/16 06:15 12/11/16 14:44 UNV (Graciela-Colace) 2 tab Q12H PRN PO 12/11/16 06:15 12/11/16 21:48 (M-M-R Ii Inj) 0.5 ml ONCE ONCE SQ 12/12/16 16:00 12/12/16 16:01 (Boostrix Inj) 0.5 ml ONCE ONCE IM 12/12/16 16:00 12/12/16 16:01 (Zofran Inj) 4 mg Q6H PRN IV PUSH 12/11/16 06:15 (Americaine 20% Top Spr) 1 spray Q4H PRN TOPICAL 12/11/16 18:30 12/11/16 21:47 Witch Keturah/ Glycerin 1 applic 1 applic QID PRN TOPICAL 12/11/16 18:30 12/11/16 21:47 (Lr 1000 ml Inj) 1,000 ml @ 1,000 mls/hr Q1H IV 12/11/16 18:30 12/11/16 18:00 Assessment/Plan Problem List: (1) Surrogate in third trimester (2) Twin in third trimester Assessment and Plan [facility] Arthur Devlin MD December 12, 2016 09:37
[2016-12-12] MEDS: DOCUSATE SODIUM 50 MG/SENNA 8.6 MG TAB PO PRN ×2 (09:44→21:56)
--- NOTE | 2016-12-12 15:30 | MP ---
cc: CHRISTIANO DINH M.D. DATE OF SURGERY: 12/11/2016 PREOPERATIVE DIAGNOSIS Twin intrauterine gestation at approximately 36+ weeks gestation with breech presentation of the presenting twin in active labor. POSTOPERATIVE DIAGNOSIS Twin intrauterine gestation at approximately 36+ weeks gestation with breech presentation of the presenting twin in active labor. PROCEDURE PERFORMED Primary low transverse section. OPERATING SURGEON Dr. Christiano Dinh. ANESTHESIA Spinal. FINDINGS IN SURGERY Baby A is a viable female, 5 pounds 8 ounces with Apgars 8 and 9, baby B is a viable male, 6 pounds 13 ounces with Apgars 8 and 9. Normal-appearing tubes and ovaries bilaterally. Blood loss 800 ccs. Complications were none. PROCEDURE IN DETAIL After proper consents were obtained, blood had been screened, the patient was taken to the operating room where spinal anesthetic was placed. She was then placed in dorsal position, sterilely prepped and draped and a Crooks catheter was placed. At this time using a sharp knife a Pfannenstiel skin incision was performed. This was carried down to the fascia using a Bovie cautery. Fascia was nicked in the midline and extended superior laterally on each side using the Bovie cautery. Blunt dissection of the muscle bellies off of the fascia occurred, peritoneum was identified, entered with two hemostats, entered sharply with the Metzenbaum scissors. This was extended superiorly inferiorly paying close attention to the bladder. Bladder blade was placed. Bladder flap was developed, bladder blade was replaced. We made a transverse incision in the lower uterine segment. I extended that using the finger friction technique. Rupture of membranes of the first baby A revealed clear fluid, was a karlene breech presentation which we delivered the buttocks easily and then delivered each of the legs. We rotated to the dorsal side up, swept the right hand across the face followed by the left hand across the face and chest. We then delivered the head easily, bulb suctioned to the oropharynx and nares. We waited 45 seconds, clamped the cord, cut it and handed to the neonatology team in attendance. A viable female 5 pounds 8 ounces, Apgars 8 and 9. At this time we went ahead and ruptured baby B's amniotic sac. Clear fluid was noted, vertex presentation, controlled delivery of the vertex, bulb suction to the oropharynx and nares and then a controlled delivery of the body followed. We waited 45 seconds for cord clamping, clamping, cut in between and then we handed that off to the team in attendance. A viable male 6 pounds 13 ounces with Apgars 8 and 9. At this time we went ahead and obtained cord blood from each of the cords. We then removed the placentas, we exteriorized the uterus, wiped it free of clots and debris. We closed the uterine incision using a #1 Chromic suture starting at each apex and meeting in the midline in a running interlocking fashion. Excellent hemostasis was noted. Irrigation was performed of the abdominal pelvic cavity. The uterus was placed back into the cavity. Hemostasis was assured. We reapproximated the muscle bellies using a #1 Chromic suture x1. We then closed the fascia using 0 Vicryl starting at each apex and meeting in midline in a running fashion. Irrigation was performed of the subcu. Hemostasis was achieved with the Bovie cautery. Skin was closed with maxine and all sponge, lap and needle count were correct x3. Christiano Dinh MD CCD/TLL /12:39 PM /3:04 PM
[2016-12-12 16:00] VITALS: BP 129/84; PULSE 87; RESP 20; TEMP 98.2
[2016-12-12] MEDS ORDERED: DIPHTH/TETANUS/ACEL PERTUSSIS (BOOSTER) 0.5 ML VIAL/PFS IM ONE (16:00)
[2016-12-12] MEDS ORDERED: MEASLES, MUMPS, RUBELLA VACCINE 0.5 ML VIAL SQ ONE (16:00)
[2016-12-12] MEDS: LACTATED RINGER'S 1000 ML INJ 1,000 ML IV SCH ×7 (18:45→22:02)
[2016-12-12] MEDS: SODIUM CHLORIDE 0.9% FLUSH 10 ML FLUSH IV FLUSH SCH (19:30)
[2016-12-13] MEDS: LACTATED RINGER'S 1000 ML INJ 1,000 ML IV SCH ×12 (00:30→11:24)
[2016-12-13] MEDS: IBUPROFEN 600 MG TAB PO PRN ×2 (01:20→07:52)
[2016-12-13] MEDS: oxyCODONE/ACETAMINOPHEN 5 MG/325 MG TAB PO PRN ×3 (01:20→11:25)
[2016-12-13 07:55] VITALS: BP 127/79; PULSE 78; RESP 16; TEMP 97.5
--- NOTE | 2016-12-13 08:18 | HHI.OB ---
Subjective Post Day: 3 Remarks doing well dc home Objective Vitals/I&O Vital Signs Date Time Temp Pulse Resp B/P Pulse Ox O2 Delivery O2 Flow Rate FiO2 12/12/16 16:00 87 20 129/84 12/12/16 16:00 98.2 Objective Remarks GENERAL: Well-nourished, well-developed patient. ABDOMEN/GI: Abdomen soft, non-tender. Fundus: Firm, non-tender at umbilicus. GENITOURINARY: Light to moderate bleeding. EXTREMITIES: No cyanosis or edema, non-tender, without signs of DVT. Medications and IVs Current Medications Medications (Trade) Dose Ordered Sig/Zora Route Start Time Stop Time Status Last Admin Lactated Ringer's 1,000 ml @ 125 mls/hr Q8H IV 12/11/16 02:45 12/11/16 02:45 (Lr 1000 ml Inj) 1,000 ml @ 150 mls/hr Q6H40M IV 12/11/16 06:04 12/11/16 07:40 (NS Flush) 2 ml BID IV FLUSH 12/11/16 09:00 (NS Flush) 2 ml UNSCH PRN IV FLUSH 12/11/16 06:15 (Mylicon Chew) 80 mg QID PRN PO 12/11/16 06:15 (Motrin) 600 mg Q6H PRN PO 12/11/16 06:15 12/13/16 07:52 (Percocet 5-325 Mg) 1 tab Q4H PRN PO 12/11/16 06:15 12/12/16 05:22 (Percocet 5-325 Mg) 2 tab Q4H PRN PO 12/11/16 06:15 12/13/16 07:52 (Graciela-Colace) 2 tab Q12H PRN PO 12/11/16 06:15 12/12/16 21:56 (Zofran Inj) 4 mg Q6H PRN IV PUSH 12/11/16 06:15 (Americaine 20% Top Spr) 1 spray Q4H PRN TOPICAL 12/11/16 18:30 12/11/16 21:47 Witch Keturah/ Glycerin 1 applic 1 applic QID PRN TOPICAL 12/11/16 18:30 12/11/16 21:47 (Lr 1000 ml Inj) 1,000 ml @ 1,000 mls/hr Q1H IV 12/11/16 18:30 12/11/16 18:00 Assessment/Plan Problem List: (1) Surrogate in third trimester (2) Twin in third trimester Assessment and Plan [facility] Arthur Devlin MD December 13, 2016 08:18
--- NOTE | 2016-12-13 08:20 | HHI.DCPOC ---
Discharge Care Plan Diagnosis: (1) delivery delivered Report Symptoms to Your Doctor -Temperate above 100.5 degrees -Redness, of incision or excessive or foul smelling drainage -Unusual pain or calf pain -Increased vaginal bleeding -Painful or difficulty urinating -Feelings of extreme sadness or anxiety after 2 weeks Goals to Promote Your Health * To prevent worsening of your condition and complications * To maintain your health at the optimal level Directions to Meet Your Goals Take your medications as prescribed Follow your dietary instruction Follow activity as directed Ensure plenty of rest for recovery Drink fluids for hydration Keep your appointments as scheduled Take your immunizations and boosters as scheduled If your symptoms worsen call your PCP, if no PCP go to Urgent Care Center or Emergency Room Smoking is Dangerous to Your Health. Avoid second hand smoke Call the 24-hour crisis hotline for domestic abuse at Arthur Devlin MD December 13, 2016 08:20
[2016-12-13] MEDS ORDERED: OXYC1TAB63 PO (08:21)
--- NOTE | 2016-12-13 08:23 | HHI.DS ---
Admission Date December 11, 2016 at 05:18 Discharge Date: December 13, 2016 Admitting Diagnosis Diagnosis: (1) delivery delivered Diagnosis: Principal Brief History This is a 26y/o at 36w6d with TIUP who presented to the [facility] with reports of contractions since 1130p. She denies vaginal bleeding or leakage of fluid with reports of active movements. care with Dr. Amato, complicated by: 1. surrogate with TIUP Hospital Course patient had CS twins and DC home pod #3 Pt Condition on Discharge: Good Discharge Disposition: Discharge Home Discharge Instructions Diet Instructions: As Tolerated, No Restrictions Activities You Can Perform: Pelvic Rest Activities to Avoid: Driving for 24 hrs Follow up Referrals: CHANGE CONTROL SPECIALIST - 2 Weeks @ [facility] with Arthur Devlin MD New Medications: Oxycodone-Acetaminophen (Oxycodone-Acetaminophen) 5-325 mg Tab 2 TAB PO Q4H PRN PAIN SCALE 6 TO 10 #30 TAB Arthur Devlin MD December 13, 2016 08:23
[2016-12-13] MEDS: SODIUM CHLORIDE 0.9% FLUSH 10 ML FLUSH IV FLUSH SCH (09:00)
[2016-12-13 09:37] VITALS: BP 125/79; PULSE 81
[2016-12-13] MEDS: DOCUSATE SODIUM 50 MG/SENNA 8.6 MG TAB PO PRN (11:25)
== END 2016-12-13 12:19 | disposition home or self-care (01) | DRG 765 ==
LOC: HOBED 01:48 → H2EB 05:18 → H1EA 08:38
PROVIDERS: ADMIT Obstetrics & Gynecology; ATTEND Obstetrics & Gynecology
PROC: 10D00Z1 Extraction of Products of Conception, Low, Open Approach (ICD-10-PCS; principal; 2016-12-11)
DX: O30.099 Twin pregnancy, unable to determine number of placenta and number of amniotic sacs, unspecified trimester (principal); O60.14X2 Preterm labor third trimester with preterm delivery third trimester, fetus 2; Z37.2 Twins, both liveborn; O32.1XX0 Maternal care for breech presentation, not applicable or unspecified; Z3A.36 36 weeks gestation of pregnancy; O99.02 Anemia complicating childbirth; D64.9 Anemia, unspecified
CPT/HCPCS: 76815; 81001; 85007; 85027; 86850; 86900; 86901; 87086; 96374; J0131; J1200; J1885; J2250; J2274; J2405; J2590; J3010; J7120

== ENCOUNTER 2018-01-12 02:53 | Emergency (ER) | payer BC ==
[~2018-01-12] VITALS: Ht 162.6 cm; Wt 74.2 kg
[~2018-01-12 02:53] MED LIST changes: +OXYC1TAB63 PO
[2018-01-12 02:56] VITALS: BP 134/94; PULSE 91; RESP 18; TEMP 98.6; O2SAT 98
== END 2018-01-12 04:22 | disposition left against medical advice (07) ==
LOC: PHED 02:53
DX: Z53.21 Procedure and treatment not carried out due to patient leaving prior to being seen by health care provider (principal)
CPT/HCPCS: 99281